=== PATIENT | male | born 1945 | race Caucasian/White ===

== ENCOUNTER → 2017-06-18 | Outpatient (CLI) | payer OTHER, MEDICARE ==
--- NOTE | 2017-06-18 13:28 | RADIOLOGY REPORT PS360 ---
CT CHEST W/O CONTRAST HISTORY: Follow-up pulmonary nodule PULMONARY NODULE, solitary pulmonary nodule ORDERING PHYSICIAN: EMERALD HAYDEN MD PATIENT AGE: 72 years TECHNIQUE: Helical acquisition obtained without contrast .. Axial, sagittal, and coronal reformatted images are generated and reviewed. COMPARISON: 03/24/2017 FINDINGS: Mild mediastinal adenopathy is once again noted. Prominent right pretracheal lymph node is present which measures 2.1 x 1.5 cm similar to the previous exam. Coronary artery calcifications are present. No obvious hilar mass or adenopathy. Normal heart size without pericardial effusion. Noncalcified 6 mm right upper lobe pulmonary nodule once again noted. This is not significantly changed. Small fibrotic region is present in the right upper lobe anteriorly unchanged measuring approximately 4 mm. Mild fibrotic changes are present in the right lung base. There is mild bronchial thickening. A 4 mm subpleural nodule is present in the right lower lobe region unchanged No new nodules are evident. No evidence of lobar consolidation or collapse. There is hyperinflation with attenuation of the peripheral pulmonary vessels with obstructive chronic bronchitis. Degenerative changes present thoracic spine. Upper abdominal images demonstrates a nonspecific left adrenal nodule at 13 mm and a 12 mm exophytic nodule in the superior pole the right kidney. These are unchanged. IMPRESSION: 1. Overall stable CT appearance of the chest. 2. No change 6 mm right upper lobe nodule. Recommend continued [address] follow-up (not LDCT). This can be performed without contrast. 3. Chronic obstructive bronchitis with mild mediastinal adenopathy unchanged
== END ==
LOC: RAD 06-16 13:45
DX: R91.1 Solitary pulmonary nodule (principal)